=== PATIENT | female | born 1960 | race Caucasian/White ===

== ENCOUNTER → 2017-01-04 | Outpatient (CLI) | payer OTHER ==
--- NOTE | 2017-01-06 12:25 | MAM ---
EXAM DESCRIPTION: MAMMO BREAST SCREENING BILATERAL CAD, images were reviewed with CAD technology, R2 computer-aided detection. CLINICAL HISTORY: [facility]. COMPARISON: 2012. FINDINGS: Routine views are obtained. Glandular tissue is near completely fatty involuted. No dominant mass, architectural distortion or clustered microcalcification.. IMPRESSION: Benign exam. BIRAD CATEGORY: 2 BENIGN RECOMMENDATIONS: FOLLOW-UP: Routine screening mammogram in one year. According to the [employer], yearly mammograms are recommended starting at age 40 and continuing as long as a woman is in good health. Any breast change noted on a breast self-exam should be reported promptly to the patient's healthcare provider. Breast MRI is recommended for women with an approximately 20-25% or greater lifetime risk of breast cancer, including women with a strong family history of breast or ovarian cancer and women who have been treated for Hodgkin's disease. Electronically signed by: Dinorah Calhoun 01/06/2017 12:23
== END | disposition home or self-care (01) ==
LOC: MAMMO 08:00
PROVIDERS: ATTEND Family Medicine
DX: Z12.31 Encounter for screening mammogram for malignant neoplasm of breast (principal)

== ENCOUNTER 2017-03-16 16:25 | Emergency (ER) | payer SELFPAY ==
[2017-03-16] MEDS ORDERED: methylPREDNISolone SODIUM SUC 125 MG/2 ML VIAL IM ONE (16:40)
--- NOTE | 2017-03-16 16:44 | ED.PDOC ---
History of Present Illness - General Chief Complaint: Lower Extremity Injury Stated Complaint: LEFT FOOT PAIN Time Seen by Provider: 03/16/17 16:36 Source: patient, RN notes reviewed, Vital Signs reviewed Exam Limitations: no limitations - History of Present Illness Initial Comments: Patient comes in with c/o gout flare. Reports this one is just starting and she does not want it to get worse. She takes Allopurinol daily and Colchicine with her flares. No acute injury. Occurred: this morning Pain - Lower Extremity: moderate: Left Foot Method of Injury: other - No injury Improving Factors: medication Worsening Factors: movement Allergies/Adverse Reactions: Allergies NO KNOWN ALLERGY Allergy (Unverified 02/20/13 06:55) Home Medications: Ambulatory Orders Allopurinol 300 mg PO BID 03/16/17 Aspirin [Aspirin Adult Low Dose] 81 mg PO DAILY 03/16/17 Atenolol [Tenormin] 50 mg PO BID 03/16/17 Citalopram Hydrobromide 40 mg PO BEDTIME 03/16/17 Clonidine HCl 0.1 mg PO BID 03/16/17 Colchicine 0.6 mg PO PRN 03/16/17 Colchicine [Colcrys] 0.6 mg PO Q4HR #14 tab 03/16/17 Lisinopril & Hydrochlorothiazi [Lisinopril/Hctz 20-25 mg] 1 tab PO NOON Lovastatin 20 mg PO BEDTIME 03/16/17 Meloxicam 15 mg PO DAILY 03/16/17 [place]-3 Fatty Acids [Fish Oil] 1,200 mg PO NOON 03/16/17 Tramadol HCl 50 mg PO PRN 03/16/17 Trazodone HCl 100 mg PO BEDTIME 03/16/17 Review of Systems - Review of Systems Constitutional: States: no symptoms reported Respiratory: States: no symptoms reported Cardiology: States: no symptoms reported Musculoskeletal: States: see HPI, joint pain, joint swelling Skin: States: change in color - red Neurological: States: no symptoms reported Past Medical History (General) - Vaccination History Hx Tetanus, Diphtheria Vaccination: Yes Hx Influenza Vaccination: No Hx Pneumococcal Vaccination: No - Social History Hx Tobacco Use: Yes Family Medical History - Family History Mother Family History: Unknown Physical Exam - Physical Exam General Appearance: Alert, Comfortable, No apparent distress, Well Developed, Well Groomed, Well Hydrated, Well Nourished Cardiovascular/Respiratory: no respiratory distress Thigh/Hip: normal inspection Leg: normal inspection, non-tender, no evidence of injury, normal ROM Knee: normal inspection, non-tender, no evidence of injury, normal ROM Ankle: normal inspection, non-tender, no evidence of injury, normal ROM Foot: soft tissue tenderness, swelling, other - Lateral mid foot is very tender to touch. Neuro/Tendon: normal sensation, normal motor functions, normal tendon functions Mental Status: alert, oriented x 3 Skin: normal color - except L foot - erythematous, warm, warm/dry Departure - Departure Clinical Impression: Gout of left foot Qualifiers: Gout etiology: idiopathic Chronicity: acute Qualified Code(s): M10.072 - Idiopathic gout, left ankle and foot Time of Disposition: 16:47 Disposition: Discharge to Home or Self Care Condition: Good Departure Forms: ED Discharge - Pt. Copy, Patient Portal Self Enrollment Instructions: DI for Gout Diet: resume usual diet Activity: increase activity as tolerated Referrals: Gwendolyn Fritz NP [Primary Care Provider] - 1-2 Weeks Prescriptions: Colchicine [Colcrys] 0.6 mg PO Q4HR #14 tab Home Medications: Ambulatory Orders Allopurinol 300 mg PO BID 03/16/17 Aspirin [Aspirin Adult Low Dose] 81 mg PO DAILY 03/16/17 Atenolol [Tenormin] 50 mg PO BID 03/16/17 Citalopram Hydrobromide 40 mg PO BEDTIME 03/16/17 Clonidine HCl 0.1 mg PO BID 03/16/17 Colchicine 0.6 mg PO PRN 03/16/17 Colchicine [Colcrys] 0.6 mg PO Q4HR #14 tab 03/16/17 Lisinopril & Hydrochlorothiazi [Lisinopril/Hctz 20-25 mg] 1 tab PO NOON Lovastatin 20 mg PO BEDTIME 03/16/17 Meloxicam 15 mg PO DAILY 03/16/17 [place]-3 Fatty Acids [Fish Oil] 1,200 mg PO NOON 03/16/17 Tramadol HCl 50 mg PO PRN 03/16/17 Trazodone HCl 100 mg PO BEDTIME 03/16/17
[2017-03-16 16:45] VITALS: TEMP 100.1; O2SAT 96
[2017-03-16] MEDS ORDERED: COLCHICINE 0.6 MG TAB PO ONE (16:45)
[2017-03-16 17:07] VITALS: BP 146/84
== END 2017-03-16 17:06 | disposition home or self-care (01) ==
LOC: ER 16:25
DX: M10.072 Idiopathic gout, left ankle and foot (principal); Z79.82 Long term (current) use of aspirin; Z79.899 Other long term (current) drug therapy

== ENCOUNTER → 2017-12-11 | Outpatient (CLI) | payer SELFPAY | END | disposition home or self-care (01) | LOC: LAB.O 08:11 | DX: E78.5 Hyperlipidemia, unspecified (principal); M10.9 Gout, unspecified; I10 Essential (primary) hypertension ==

== ENCOUNTER → 2017-12-27 | Outpatient (CLI) | payer SELFPAY | LOC: YCFC.O 10:44 | DX: D75.89 Other specified diseases of blood and blood-forming organs (principal); R73.01 Impaired fasting glucose ==

== ENCOUNTER → 2018-04-24 | Outpatient (CLI) | payer SELFPAY | LOC: YCFC.O 08:17 | DX: E78.2 Mixed hyperlipidemia (principal) ==

== ENCOUNTER 2018-06-19 16:51 | Emergency (ER) | payer SELFPAY ==
--- NOTE | 2018-06-19 17:32 | ED.PDOC ---
History of Present Illness - General Chief Complaint: General Stated Complaint: dizzy Time Seen by Provider: 06/19/18 17:31 - History of Present Illness Initial Comments: Chela Owen 57 y/o female stated that she had been feeling dizzy on and off for the last 3 days and felt warm yesterday.No nausea ,vomiting,cough , diarrhea.No ill contact.no history of head trauma. Timing/Duration: other - see hpi Severity: moderate Improving Factors: nothing Worsening Factors: nothing Associated Symptoms: other - see hpi Allergies/Adverse Reactions: Allergies NO KNOWN ALLERGY Allergy (Verified 03/16/17 16:45) Home Medications: Ambulatory Orders Aspirin [Aspirin Adult Low Dose] 81 mg PO DAILY 03/16/17 Atenolol [Tenormin] 50 mg PO BID 03/16/17 Lisinopril & Hydrochlorothiazi [Lisinopril/Hctz 20-25 mg] 1 tab PO NOON [place]-3 Fatty Acids [Fish Oil] 1,200 mg PO NOON 03/16/17 RX: Allopurinol 300 mg PO BID 03/16/17 RX: Citalopram Hydrobromide 40 mg PO BEDTIME 03/16/17 RX: Clonidine HCl 0.1 mg PO BID 03/16/17 RX: Colchicine 0.6 mg PO PRN 03/16/17 RX: Colchicine [Colcrys] 0.6 mg PO Q4HR #14 tab 03/16/17 RX: Lovastatin 20 mg PO BEDTIME 03/16/17 RX: Meloxicam 15 mg PO DAILY 03/16/17 RX: Tramadol HCl 50 mg PO PRN 03/16/17 RX: Trazodone HCl 100 mg PO BEDTIME 03/16/17 Meclizine HCl [Meclizine 25] 25 mg PO Q6HRS PRN #30 tab 06/19/18 Review of Systems - Review of Systems Constitutional: States: no symptoms reported EENTM: States: no symptoms reported Respiratory: States: no symptoms reported Cardiology: States: no symptoms reported Gastrointestinal/Abdominal: States: no symptoms reported Genitourinary: States: no symptoms reported Musculoskeletal: States: no symptoms reported Skin: States: no symptoms reported Neurological: States: see HPI Endocrine: States: no symptoms reported Hematologic/Lymphatic: States: no symptoms reported Past Medical History (General) - Patient Medical History Hx of COPD: No Hx Cardiac Disorders: No Hx Diabetes: No Surgical History: other - shoulder bilateral,hysterectomy,wrist - Vaccination History Hx Tetanus, Diphtheria Vaccination: Yes Hx Influenza Vaccination: No Hx Pneumococcal Vaccination: No - Social History Hx Tobacco Use: Yes Family Medical History - Family History Mother Family History: Unknown Hx Family Hypertension: Yes - parents Hx Cardiac Disease: Yes - parents Physical Exam - Physical Exam General Appearance: Alert, Comfortable, No apparent distress Eye Exam: bilateral normal Ears, Nose, Throat: hearing grossly normal, normal ENT inspection Neck: non-tender, full range of motion, supple Respiratory: chest non-tender, lungs clear, normal breath sounds, no respiratory distress Cardiovascular/Chest: normal peripheral pulses, regular rate, rhythm, no murmur Peripheral Pulses: radial,right: 2+, radial,left: 2+ Gastrointestinal/Abdominal: normal bowel sounds, non tender, soft, no organomegaly Back Exam: no CVA tenderness, no vertebral tenderness Extremity: non-tender, no pedal edema, no calf tenderness Neurologic: no motor/sensory deficits, alert, oriented x 3 Skin Exam: normal color, warm/dry Lymphatic: no adenopathy Progress - Progress Progress: 06/19/18 18:34 Vital Signs - 8 hr 06/19/18 17:15 Temperature 99.1 F Pulse Rate [ 63 Left Radial] Respiratory 20 Rate Blood Pressure 144/89 [Left Arm] O2 Sat by Pulse 95 Oximetry - Results/Orders Results/Orders: 06/19/18 17:53 IV Care:Saline Lock per Protoc QSHIFT Laboratory Results - last 24 hr 06/19/18 06/19/18 06/19/18 18:22 18:22 19:44 WBC 6.2 RBC 4.21 Hgb 15.4 Hct 44.5 MCV 105.7 H MCH 36.6 H MCHC 34.6 RDW 13.5 Plt Count 194 MPV 7.1 L Absolute Neuts (auto) 3.80 Absolute Lymphs (auto) 1.50 Absolute Monos (auto) 0.90 H Absolute Eos (auto) 0.00 Absolute Basos (auto) 0.00 Neutrophils % 60.6 Lymphocytes % 24.3 Monocytes % 14.4 H Eosinophils % 0.0 L Basophils % 0.7 PT 10.1 INR 1.01 PTT (SP) 24.9 Sodium 138 Potassium 4.1 Chloride 101 Carbon Dioxide 26 Anion Gap 15.1 BUN 21 H Creatinine 0.79 BUN/Creatinine Ratio 26.6 H Random Glucose 108 H Serum Osmolality 279.2 Lactic Acid 0.9 Calcium 9.9 Magnesium 2.0 Total Bilirubin 0.5 Direct Bilirubin < 0.1 Indirect Bilirubin 0.4 AST 41 ALT 41 Alkaline Phosphatase 59 Creatine Kinase 148 H CK-MB (CK-2) 3.3 CK-MB (CK-2) % Not Reportable Troponin I < 0.02 Serum Total Protein 8.1 Albumin 4.4 Urine Color Yellow Urine Appearance Clear Urine pH 6.0 Ur Specific Raymond 1.020 Urine Protein Negative Urine Glucose (UA) Negative Urine Ketones Negative Urine Blood Trace-lysed H Urine Nitrite Negative Urine Bilirubin Negative Urine Urobilinogen 0.2 Ur Leukocyte Esterase Trace H Urine RBC 1-3 Urine WBC 3-5 H Ur Epithelial Cells 0-1 Urine Bacteria 1+ - EKG/XRAY/CT XRAY: chest - no acute abnormalities Departure - Departure Clinical Impression: Dizziness Time of Disposition: 20:27 Disposition: Discharge to Home or Self Care Condition: Fair Departure Forms: ED Discharge - Pt. Copy, Patient Portal Self Enrollment Instructions: Dizziness, Nonvertigo, (DC) Referrals: Jesusita Pulido MD [Primary Care Provider] - 1-2 Weeks Prescriptions: Meclizine HCl [Meclizine 25] 25 mg PO Q6HRS PRN #30 tab PRN Reason: Dizziness Home Medications: Ambulatory Orders Aspirin [Aspirin Adult Low Dose] 81 mg PO DAILY 03/16/17 Atenolol [Tenormin] 50 mg PO BID 03/16/17 Lisinopril & Hydrochlorothiazi [Lisinopril/Hctz 20-25 mg] 1 tab PO NOON [place]-3 Fatty Acids [Fish Oil] 1,200 mg PO NOON 03/16/17 RX: Allopurinol 300 mg PO BID 03/16/17 RX: Citalopram Hydrobromide 40 mg PO BEDTIME 03/16/17 RX: Clonidine HCl 0.1 mg PO BID 03/16/17 RX: Colchicine 0.6 mg PO PRN 03/16/17 RX: Colchicine [Colcrys] 0.6 mg PO Q4HR #14 tab 03/16/17 RX: Lovastatin 20 mg PO BEDTIME 03/16/17 RX: Meloxicam 15 mg PO DAILY 03/16/17 RX: Tramadol HCl 50 mg PO PRN 03/16/17 RX: Trazodone HCl 100 mg PO BEDTIME 03/16/17 Meclizine HCl [Meclizine 25] 25 mg PO Q6HRS PRN #30 tab 06/19/18
[2018-06-19] MEDS ORDERED: DEXAMETHASONE INJ 4 MG/ML VIAL IM ONE (18:05)
[2018-06-19] MEDS ORDERED: PROMETHAZINE HCL INJ 25 MG/ML VIAL IM ONE (18:05)
[2018-06-19] MEDS ORDERED: ALPRAZolam 0.25 MG TAB PO ONE (18:05)
[2018-06-19 18:16] VITALS: TEMP 99.1
--- NOTE | 2018-06-19 18:17 | RAD ---
EXAM DESCRIPTION: Chest,1 View CLINICAL HISTORY: 57 years Female, fever COMPARISON: None. TECHNIQUE: AP portable chest. FINDINGS: Heart size is normal with normal pulmonary vascularity. No consolidating infiltrate. No pulmonary mass or worrisome nodule. No pneumothorax or pleural effusion. Bilateral reverse shoulder arthroplasties are present. IMPRESSION: No acute process is identified in the chest. Electronically signed by: Celestino Triplett MD 06/19/2018 6:16 PM CDT
[2018-06-19] MEDS ORDERED: MECLIZINE HCL 12.5 MG TAB PO ONE ×2 (20:19→20:24)
[2018-06-19 20:38] VITALS: BP 117/39; O2SAT 92
== END 2018-06-19 20:37 | disposition home or self-care (01) ==
LOC: ER 16:51
DX: R42 Dizziness and giddiness (principal); Z79.82 Long term (current) use of aspirin; Z79.899 Other long term (current) drug therapy; Z87.891 Personal history of nicotine dependence
CPT/HCPCS: 36415; 71045; 80048; 80076; 81001; 82550; 82553; 83605; 84484; 85025; 85610; 85730; J1100; J2550

== ENCOUNTER → 2018-12-25 | Outpatient (CLI) | payer SELFPAY | LOC: YCFC.O 09:31 | PROVIDERS: ATTEND Family Medicine | DX: E05.90 Thyrotoxicosis, unspecified without thyrotoxic crisis or storm (principal); E78.2 Mixed hyperlipidemia; I10 Essential (primary) hypertension ==

== ENCOUNTER → 2019-01-13 | Outpatient (CLI) | payer SELFPAY | LOC: LAB.O 12:12 | PROVIDERS: ATTEND Family Medicine | DX: N28.9 Disorder of kidney and ureter, unspecified (principal); E05.90 Thyrotoxicosis, unspecified without thyrotoxic crisis or storm ==

== ENCOUNTER → 2019-12-07 | Outpatient (CLI) | payer OTHER | LOC: LAB.O 12:40 | PROVIDERS: ATTEND Family Medicine | DX: E05.90 Thyrotoxicosis, unspecified without thyrotoxic crisis or storm (principal) ==

== ENCOUNTER → 2020-06-10 | Outpatient (CLI) | payer OTHER | LOC: YCFC.O 09:54 | PROVIDERS: ATTEND Family Medicine | DX: E05.90 Thyrotoxicosis, unspecified without thyrotoxic crisis or storm (principal) ==

== ENCOUNTER → 2020-10-08 | Outpatient (CLI) | payer SELFPAY | LOC: YCFC.O 08:01 | PROVIDERS: ATTEND Family Medicine | DX: E05.90 Thyrotoxicosis, unspecified without thyrotoxic crisis or storm (principal); E78.5 Hyperlipidemia, unspecified ==

== ENCOUNTER → 2020-11-08 | Outpatient (CLI) | payer OTHER ==
--- NOTE | 2020-11-08 20:11 | CT ---
Procedure: CT LUNG SCREENING Exam Date: November 08, 2020. Ordering Provider: Shabbir Stoddard Clinical Indication: HX OF TOBACCO USE . Current cigarette smoker. 15 pack-year history. This patient meets eligibility criteria for low-dose CT lung cancer screening. Comparison: Chest x-ray May 2018. Technique: Using a multislice scanner, sequential helical axial imaging was obtained in the thorax, 2.5 mm thickness, 2.5 mm separation, from the level of the thoracic inlet through the lung bases without IV contrast. A low dose protocol was utilized for BMI greater than 30: BMI: 30.1. CTDI: 2.92 mGy. 120. kVp. 75 mA. DLP 107 mGy-cm. 2D sagittal and coronal reconstructed images, 6.0 mm thickness, were obtained. This exam was performed according to our departmental dose optimization program which includes use of automated exposure control, adjustment of the mA and/or kV according to patient size and/or use of iterative reconstruction technique. Nodule measurements under 10 mm are given as mean value of 3 axes diameters. FINDINGS: Lungs and large airways: Bilateral pleural parenchymal scarring in the base of the right middle lobe and in the inferior lingula. Also in the bibasilar lower lobes. Minimal bilateral perinephric fascial thickening. Pleura and space: Bilateral thickening but no acute process. Mediastinum and stan: evaluation limited by low dose technique and lack of IV contrast. No enlarged lymph nodes or dominant soft tissue masses. Heart and great vessels: Calcified coronary arteries. Atherosclerotic calcifications and several brachiocephalic vessels, aortic arch, and descending thoracic aorta. Chest wall, lower neck, axillae: Evaluation also limited by same factors as described above. Nodular density lateral right breast and bilateral breast calcifications. Seen on recent digital breast on the symphysis examination July 2020 and stable since December 2016. No dominant soft tissue mass in the chest wall and normal-sized axillary nodes. Upper abdomen: Evaluation limited by low-dose technique. No free air or fluid in the included peritoneal space. Prominent left adrenal gland with Hounsfield density +1. This is consistent with adenoma or cyst and no further follow-up is recommended. Right adrenal gland unremarkable. Other included abdominal organs show no gross abnormalities. Low-density of the included liver, consistent with steatosis. Osseous structures: Evaluation limited by low dose MIP technique. Bilateral total shoulder arthroplasties. Mild dextroscoliosis. Minimal sternoclavicular arthrosis. Minimal thoracic spondylosis. IMPRESSION: 1. No abnormal nodules or masses in the lungs. Early emphysematous changes and minimal bilateral scarring. No acute infiltrate... [facility] Best Practice Recommendations: please see below for Lung RADS category and FOLLOW-UP.* *Lung RADS category Category 1 - No nodule or definitely benign nodules (probability of malignancy less than 1%). Follow-up: Continue annual screening with Low Dose Chest CT in 12 months. Electronically signed by: Crow Cornelius MD 11/08/2020 8:09 PM [facility]
== END ==
LOC: CT 07:59
PROVIDERS: ATTEND Family Medicine
DX: Z12.2 Encounter for screening for malignant neoplasm of respiratory organs (principal); J43.9 Emphysema, unspecified; J98.4 Other disorders of lung; Z87.891 Personal history of nicotine dependence